=== PATIENT | female | born 1985 | race Caucasian/White ===

== ENCOUNTER → 2019-06-02 | Outpatient (CLI) | payer BC ==
[2019-06-02 08:23] LABS: HEMOGLOBIN 14.5 g/dL (12.0-15.5); MEAN CORPUSCULAR HEMOGLOBIN 30.2 pg (27.0-33.4); MEAN CORPUSCULAR HGB CONC 33.7 g/dL (32.0-36.0); MEAN CORPUSCULAR VOLUME 90 fl (80-97); PLATELET COUNT 317 10^3/uL (150-450); RED CELL DISTRIBUTION WIDTH 12.7 % (11.5-14.0)
[2019-06-02 08:29] LABS: FASTING GAC 104 (<110)
[2019-06-02 08:37] LABS: ALKALINE PHOSPHATASE 61 U/L (38-126); ANION GAP 13 (5-19); ASPARTATE AMINO TRANSFERASE 27 U/L (14-36); BILIRUBIN,DIRECT 0.1 mg/dL (0.0-0.4); BILIRUBIN,TOTAL 0.9 mg/dL (0.2-1.3); BLOOD UREA NITROGEN 12 mg/dL (7-20); CALCIUM 9.8 mg/dL (8.4-10.2); CARBON DIOXIDE 25 mmol/L (22-30); CHLORIDE 101 mmol/L (98-107); CHOLESTEROL 149.61 mg/dL (0-200); GLUCOSE 101 mg/dL (75-110); POTASSIUM 4.4 mmol/L (3.6-5.0); TOTAL PROTEIN 8.2 g/dL (6.3-8.2); TRIGLYCERIDES 123 mg/dL (<150)
[2019-06-02 08:47] LABS: DIRECT LDL 92 mg/dL (<100)
[2019-06-02 08:55] LABS: GLUCOSE,FASTING 101 mg/dL (<110)
[2019-06-02 09:03] LABS: ABSOLUTE LYMPHOCYTES# (MANUAL) 1.5 10^3/uL (0.5-4.7); BASOPHILS % (MANUAL) 0 % (0-2); EOSINOPHILS % (MANUAL) 0 % (0-6); LYMPHOCYTES % (MANUAL) 15 % (13-45); METAMYELOCYTES % (MANUAL) 1 % (0); MONOCYTES % (MANUAL) 10 % (3-13); SEGMENTED NEUTROPHILS % (MAN) 74 % (42-78); TOTAL CELLS COUNTED 100
[2019-06-02 09:05] LABS: OVALOCYTES SLIGHT; PLATELET COMMENT ADEQUATE; POIKILOCYTOSIS SLIGHT
[2019-06-02 09:50] LABS: FREE T3 4.09 pg/mL (2.77-5.27); FREE T4 (FREE THYROXINE) 0.86 ng/dL (0.78-2.19)
[2019-06-02 10:03] LABS: THYROID STIMULATING HORMONE 2.65 uIU/mL (0.47-4.68)
== END ==
LOC: OD 07:20
PROVIDERS: ATTEND Family Medicine
DX: E16.1 Other hypoglycemia (principal); R55 Syncope and collapse; Z82.49 Family history of ischemic heart disease and other diseases of the circulatory system; Z86.32 Personal history of gestational diabetes
CPT/HCPCS: 36415; 80053; 80061; 82947; 82951; 83036; 83525; 83735; 84439; 84443; 84481; 85025

== ENCOUNTER 2020-05-30 18:12 | Emergency (ER) | payer BC ==
[2020-05-30 18:45] VITALS: BP 139/82
== END 2020-05-30 21:10 | disposition left against medical advice (07) ==
LOC: ER 18:12
DX: Z53.21 Procedure and treatment not carried out due to patient leaving prior to being seen by health care provider (principal)
CPT/HCPCS: 82962

== ENCOUNTER 2020-05-31 07:01 | Emergency (ER) | payer BC ==
[2020-05-31] MEDS ORDERED: NORMAL SALINE 1000 ML 1,000 ML IV ONE (08:03)
[2020-05-31] MEDS ORDERED: METOCLOPRAMIDE HCL INJ/PF 10 MG/2 ML SDV IV ONE (08:11)
[2020-05-31] MEDS ORDERED: MECLIZINE HCL 25 MG TABLET PO ONE (08:12)
[2020-05-31 08:25] LABS: ABSOLUTE LYMPHOCYTES (AUTO) 1.2 10^3/uL (0.5-4.7); ABSOLUTE MONOCYTES (AUTO) 0.6 10^3/uL (0.1-1.4); ABSOLUTE NEUT (AUTO) 13.7 10^3/uL (1.7-8.2); BASOPHILS % (AUTO) 0.1 % (0-2); EOSINOPHILS % (AUTO) 0.1 % (0-6); HEMATOCRIT 44.5 % (36.0-47.0); HEMOGLOBIN 15.2 g/dL (12.0-15.5); LYMPHOCYTES % (AUTO) 7.6 % (13-45); MEAN CORPUSCULAR HEMOGLOBIN 30.3 pg (27.0-33.4); MEAN CORPUSCULAR HGB CONC 34.2 g/dL (32.0-36.0); MEAN CORPUSCULAR VOLUME 89 fl (80-97); MONOCYTES % (AUTO) 3.7 % (3-13); PLATELET COUNT 304 10^3/uL (150-450); RED BLOOD COUNT 5.03 10^6/uL (3.72-5.28); RED CELL DISTRIBUTION WIDTH 12.8 % (11.5-14.0); SEGMENTED NEUTROPHILS % (AUTO) 88.5 % (42-78); TOTAL CELLS COUNTED % (AUTO) 100 %; WHITE BLOOD COUNT 15.5 10^3/uL (4.0-10.5)
[2020-05-31 08:43] LABS: ALBUMIN 4.6 g/dL (3.5-5.0); ALKALINE PHOSPHATASE 77 U/L (38-126); ANION GAP 7 (5-19); ASPARTATE AMINO TRANSFERASE 30 U/L (14-36); BILIRUBIN,DIRECT 0.2 mg/dL (0.0-0.4); BILIRUBIN,TOTAL 1.2 mg/dL (0.2-1.3); BLOOD UREA NITROGEN 10 mg/dL (7-20); CALCIUM 9.8 mg/dL (8.4-10.2); CARBON DIOXIDE 24 mmol/L (22-30); CHLORIDE 108 mmol/L (98-107); GLUCOSE 129 mg/dL (75-110); POTASSIUM 4.2 mmol/L (3.6-5.0); TOTAL PROTEIN 7.4 g/dL (6.3-8.2)
--- NOTE | 2020-05-31 09:16 | RADIOLOGY REPORT (SQ) ---
EXAM DESCRIPTION: CT HEAD WITHOUT IMAGES COMPLETED DATE/TIME: 05/31/2020 8:58 am REASON FOR STUDY: dizziness/nausea/motion sickness/frontal SERRANO COMPARISON: None. TECHNIQUE: Axial images acquired through the brain without intravenous contrast. Images reviewed wi th bone, brain and subdural windows. Additional sagittal and coronal reconstructions were generated. Images stored on PACS. All CT scanners at this facility use dose modulation, iterative reconstruction, and/or weight based d osing when appropriate to reduce radiation dose to as low as reasonably achievable (ALARA). [facility]: Dose Right [facility]: CareDose [facility]: Dose Right [facility]: Teradose 4D [facility]: Phloronol RADIATION DOSE: CT Rad equipment meets quality standard of care and radiation dose reduction techniq ues were employed. CTDIvol: 53.2 mGy. DLP: 964 mGy-cm. mGy. LIMITATIONS: None. FINDINGS: VENTRICLES: Normal size and contour. CEREBRUM: No masses. No hemorrhage. No midline shift. No evidence for acute infarction. Normal gra y/white matter differentiation. No areas of low density in the white matter. CEREBELLUM: No masses. No hemorrhage. No alteration of density. No evidence for acute infarction. EXTRAAXIAL SPACES: No fluid collections. No masses. ORBITS AND GLOBE: No intra- or extraconal masses. Normal contour of globe without masses. CALVARIUM: No fracture. PARANASAL SINUSES: No fluid or mucosal thickening. SOFT TISSUES: No mass or hematoma. OTHER: No other significant finding. IMPRESSION: NORMAL BRAIN CT WITHOUT CONTRAST. EVIDENCE OF ACUTE STROKE: NO. COMMENT: Quality ID # [id number]: Final reports with documentation of one or more dose reduction techniques (e.g., Automated exposure control, adjustment of the mA and/or kV according to patient size, use of iterative reconstruction technique) TECHNICAL DOCUMENTATION: JOB ID: [id number] 2010 [employer]- All Rights Reserved Reading location - IP/workstation name: [email or web address]
[2020-05-31 09:45] LABS: APPEARANCE,URINE SLIGHTLY-CLOUDY; BILIRUBIN,URINE NEGATIVE (NEGATIVE); COLOR,URINE YELLOW; GLUCOSE, URINE NEGATIVE (NEGATIVE); KETONES,URINE NEGATIVE (NEGATIVE); LEUKOCYTE ESTERASE,URINE NEGATIVE (NEGATIVE); NITRITE,URINE NEGATIVE (NEGATIVE); PROTEIN,URINE 30 mg/dL (NEGATIVE); URINE SPECIFIC GRAVITY 1.025; UROBILINOGEN,URINE NEGATIVE mg/dL (<2.0)
[2020-05-31 09:55] LABS: ADD MANUAL MICROSCOPIC YES
[2020-05-31 09:57] LABS: BACTERIA,URINE TRACE /HPF; RBC,URINE 0-1 /HPF; WBC,URINE 0-1 /HPF
--- NOTE | 2020-05-31 10:12 | RADIOLOGY REPORT (SQ) ---
EXAM DESCRIPTION: CHEST SINGLE VIEW IMAGES COMPLETED DATE/TIME: 05/31/2020 10:00 am REASON FOR STUDY: leukocytosis COMPARISON: None. EXAM PARAMETERS: NUMBER OF VIEWS: One view. TECHNIQUE: Single frontal radiographic view of the chest acquired. RADIATION DOSE: NA LIMITATIONS: None. FINDINGS: LUNGS AND PLEURA: No opacities, masses or pneumothorax. No pleural effusion. MEDIASTINUM AND HILAR STRUCTURES: No masses. Contour normal. HEART AND VASCULAR STRUCTURES: Heart normal in size. Normal vasculature. BONES: No acute findings. HARDWARE: None in the chest. OTHER: No other significant finding. IMPRESSION: NO ACUTE RADIOGRAPHIC FINDING IN THE CHEST. TECHNICAL DOCUMENTATION: JOB ID: [id number] 2010 [employer]- All Rights Reserved Reading location - IP/workstation name: [email or web address]
--- NOTE | 2020-05-31 10:44 | ER Document Report ---
Entered by SEBASTIAN DARLING SCRIBE 05/31/20 0742 Acting as scribe for:SAGE MIGUEL MD ED General - General Chief Complaint: Nausea/Vomiting/Diarrhea Stated Complaint: DIZZINESS,NAUSEA,VOMITING,DIARRHEA Primary Care Provider: SHAZIA FOX MD [Primary Care Provider] - Follow up as needed Mode of Arrival: Ambulatory Information source: Patient Notes: This 34 year old female patient presents to the ED today with complaints of episodic nausea/vomiting/diarrhea and dizziness that started x6 months ago, worse yesterday morning. Patient states that she came for evaluation yesterday, but left without being seen because she felt better. She reports x4 episodes of emesis and x2 episodes of diarrhea since leaving the ED yesterday, so she decided to come back. She also notes frontal headache, frontal sinus pressure, and nasal drainage. Denies . Patient states that her PCP is working her up for reactive hypoglycemia and that she had some glucose tests that were ambiguous. She further states that her PCP is referring her to a specialist and that she has not seen them yet. TRAVEL OUTSIDE OF THE [place] IN LAST 30 DAYS: No - Related Data Allergies/Adverse Reactions: No Known Allergies Allergy (Verified 05/30/20 19:31) Past Medical History - General Information source: Patient - Social History Smoking Status: Never Smoker Cigarette use (# per day): No Chew tobacco use (# tins/day): No Frequency of alcohol use: None Drug Abuse: None Lives with: Family Family History: Reviewed & Not Pertinent, DM, Hypertension, Malignancy Patient has suicidal ideation: No Patient has homicidal ideation: No Renal/ Medical History: Reports: Hx Ovarian Cysts Psychiatric Medical History: Reports: Hx Anxiety, Hx Depression Past Surgical History: Reports: None Review of Systems - Review of Systems Constitutional: No symptoms reported EENT: See HPI, Nose discharge, Sinus pressure Cardiovascular: See HPI, Dizziness Respiratory: No symptoms reported Gastrointestinal: See HPI, Diarrhea, Nausea, Vomiting Female Genitourinary: See HPI. denies: Musculoskeletal: No symptoms reported Skin: No symptoms reported Hematologic/Lymphatic: No symptoms reported Neurological/Psychological: See HPI, Headaches -: Yes All other systems reviewed and negative Physical Exam - Vital signs Vitals: Pulse Resp BP Pulse Ox 111 H 18 137/79 H 100 05/31/20 07:07 05/31/20 07:07 05/31/20 07:07 05/31/20 07:07 - General General appearance: Alert, Anxious - Shaking - HEENT Head: Normocephalic, Atraumatic Eyes: Normal Extraocular movements intact: No - Patient philipp out with lateral gaze in either direction Tympanic membrane: Bulging - bilaterally, Serous effusion - bilaterally Sinus: Frontal, Tenderness Pharynx: Post nasal drainage - Respiratory Respiratory status: No respiratory distress Chest status: Nontender Breath sounds: Normal Chest palpation: Normal - Cardiovascular Rhythm: Regular Heart sounds: Normal auscultation, S1 appreciated, S2 appreciated Murmur: No Friction rub: No Gallop: None auscultated - Abdominal Inspection: Normal Distension: No distension Bowel sounds: Normal Tenderness: Nontender - Abdomen soft Organomegaly: No organomegaly - Back Back: Normal, Nontender - Extremities General upper extremity: Normal inspection General lower extremity: Normal inspection. No: Edema - Neurological Neuro grossly intact: Yes - No focal neurological deficits Orientation: AAOx4 Kirill Coma Scale Eye Opening: Spontaneous Kirill Coma Scale Verbal: Oriented [place] Coma Scale Motor: Obeys Commands Kirill Coma Scale Total: 15 - Psychological Associated symptoms: Anxious - Skin Skin Temperature: Warm Skin Moisture: Dry Skin Color: Normal Course - Re-evaluation Re-evalutation: 05/31/20 10:36 Patient states she is feeling better after receiving medications for labyrinthitis. - Vital Signs Vital signs: Temp Pulse Resp BP Pulse Ox 111 H 18 137/79 H 100 05/31/20 07:07 05/31/20 07:07 05/31/20 07:07 05/31/20 07:07 05/31/20 10:36 Vital signs show sinus tachycardia 111. - Laboratory Result Diagrams: 05/31/20 07:59 05/31/20 07:59 Laboratory results interpreted by me: 05/31/20 05/31/20 05/31/20 07:59 07:59 08:38 WBC 15.5 H Lymph % (Auto) 7.6 L Absolute Neuts (auto) 13.7 H Seg Neutrophils % 88.5 H Chloride 108 H Creatinine 0.45 L Glucose 129 H ALT 43 H Urine Protein 30 H Labs report of 15.5 white blood cell count and a glucose of 129. Discussed with patient regarding her elevated white blood cell count she has no fever chills has not been vomiting. Reports that she usually does not have an elevated white blood cell count and is not on any steroids at this time. 05/31/20 10:37 05/31/20 07:59 05/31/20 07:59 MCV 89 fl (80-97) 05/31/20 07:59 MCH 30.3 pg (27.0-33.4) 05/31/20 07:59 MCHC 34.2 g/dL (32.0-36.0) 05/31/20 07:59 RDW 12.8 % (11.5-14.0) 05/31/20 07:59 Seg Neutrophils % 88.5 % (42-78) H 05/31/20 07:59 Chloride 108 mmol/L (98-107) H 05/31/20 07:59 Carbon Dioxide 24 mmol/L (22-30) 05/31/20 07:59 Anion Gap 7 (5-19) 05/31/20 07:59 Est GFR ( Amer) > 60 (>60) 05/31/20 07:59 Glucose 129 mg/dL (75-110) H 05/31/20 07:59 Calcium 9.8 mg/dL (8.4-10.2) 05/31/20 07:59 Total Bilirubin 1.2 mg/dL (0.2-1.3) 05/31/20 07:59 AST 30 U/L (14-36) 05/31/20 07:59 Alkaline Phosphatase 77 U/L (38-126) 05/31/20 07:59 Total Protein 7.4 g/dL (6.3-8.2) 05/31/20 07:59 Albumin 4.6 g/dL (3.5-5.0) 05/31/20 07:59 Urine Color YELLOW 05/31/20 08:38 Urine Appearance SLIGHTLY-CLOUDY 05/31/20 08:38 Urine pH 9.0 (5.0-9.0) 05/31/20 08:38 Ur Specific Ray 1.025 05/31/20 08:38 Urine Protein 30 mg/dL (NEGATIVE) H 05/31/20 08:38 Urine Glucose (UA) NEGATIVE mg/dL (NEGATIVE) 05/31/20 08:38 Urine Ketones NEGATIVE mg/dL (NEGATIVE) 05/31/20 08:38 Urine Blood NEGATIVE (NEGATIVE) 05/31/20 08:38 Urine Nitrite NEGATIVE (NEGATIVE) 05/31/20 08:38 Ur Leukocyte Esterase NEGATIVE (NEGATIVE) 05/31/20 08:38 Ur Squamous Epith Cells FEW /HPF 05/31/20 08:38 - Diagnostic Test Radiology reviewed: Image reviewed, Reports reviewed Radiology results interpreted by me: 05/31/20 10:[address] 05/31/20 08:09 IMPRESSION: NORMAL BRAIN CT WITHOUT CONTRAST. EVIDENCE OF ACUTE STROKE: NO. Chest X-Ray 05/31/20 09:13 IMPRESSION: NO ACUTE RADIOGRAPHIC FINDING IN THE CHEST. CT scan of patient's head shows no acute process no evidence for stroke. Chest x-ray shows no acute infiltrate or any acute radiographic finding on chest x-ray today. Discharge - Discharge Clinical Impression: Acute labyrinthitis, Dizziness, Sinus headache Condition: Stable Disposition: HOME, SELF-CARE Instructions: Labyrinthitis ([facility]), Meclizine ([facility]), Antinausea Medication ([facility]) Prescriptions: Amoxicillin 1 tab PO TID #30 tab Meclizine HCl [Antivert 25 mg Tablet] 25 mg PO TID PRN #21 tablet PRN Reason: Ondansetron [Zofran Odt 4 mg Tablet] 1 - 2 tab PO Q4H PRN #15 tab.rapdis PRN Reason: For Nausea/Vomiting Referrals: SHAZIA FOX MD [Primary Care Provider] - Follow up as needed I personally performed the services described in the documentation, reviewed and edited the documentation which was dictated to the scribe in my presence, and it accurately records my words and actions.
[2020-05-31 11:04] VITALS: BP 124/70
== END 2020-05-31 11:02 | disposition home or self-care (01) ==
LOC: ER 07:01
DX: H83.03 Labyrinthitis, bilateral (principal); R42 Dizziness and giddiness; R51 Headache; R11.2 Nausea with vomiting, unspecified; R19.7 Diarrhea, unspecified
CPT/HCPCS: 99285; 96361; 96374; 36415; 85025; 80053; 81001; 71045; 70450; J2765; J7030

== ENCOUNTER → 2020-06-15 | Outpatient (CLI) | payer BC ==
--- NOTE | 2020-06-15 13:11 | RADIOLOGY REPORT (SQ) ---
EXAM DESCRIPTION: MRI HEAD WITHOUT IMAGES COMPLETED DATE/TIME: 06/15/2020 12:32 pm REASON FOR STUDY: H81.399 OTHER PERIPHERAL VERTIGO, UNSPECIFIED EAR H81.399 OTHER PERIPHERAL VERTIG O, UNSPECIFIED EAR COMPARISON: None. TECHNIQUE: Multiplanar imaging includes non-contrasted T1, T2, FLAIR, and diffusion with ADC map seq uences. Additional thin slice images without gadolinium contrast acquired in the posterior fossa. Thao ges stored on PACS. LIMITATIONS: None. FINDINGS: ANATOMY: No anomalies. Normal vascular flow voids. Pituitary fossa normal. CSF SPACES: Normal in size and contour. No hemorrhage. CEREBRUM: Sulci and gyri normal in size and contour. Normal white matter signal on FLAIR imaging. No evidence of hemorrhage, mass, or extraaxial fluid collection. POSTERIOR FOSSA: No signal alteration. No hemorrhage. No edema, masses or mass effect. Internal kia tory canals, cerebello-pontine angles, mastoids normal. DIFFUSION IMAGING: Negative for acute or sub-acute infarction. ORBITS: No masses. Globes normal. PARANASAL SINUSES: No fluid levels. Mucosa normal. OTHER: No other significant finding. IMPRESSION: NORMAL MRI OF THE BRAIN WITHOUT INTRAVENOUS GADOLINIUM CONTRAST. IF THERE IS SUSPICION OF AN ACOUSTIC NEUROMA, THEN MR IMAGING WITH INTRAVENOUS CONTRAST WILL BE NECESSARY. EVIDENCE OF ACUTE STROKE: NO. TECHNICAL DOCUMENTATION: JOB ID: [id number] 2010 [employer]- All Rights Reserved Reading location - IP/workstation name: [email or web address]
== END ==
LOC: RAD 10:45
PROVIDERS: ATTEND Family Medicine
DX: H81.399 Other peripheral vertigo, unspecified ear (principal)
CPT/HCPCS: 70551

== ENCOUNTER → 2020-06-26 | Outpatient (CLI) | payer BC ==
[2020-06-26 09:17] LABS: ABSOLUTE EOSINOPHILS # (AUTO) 0.1 10^3/uL (0.0-0.6); ABSOLUTE LYMPHOCYTES (AUTO) 1.7 10^3/uL (0.5-4.7); ABSOLUTE MONOCYTES (AUTO) 0.6 10^3/uL (0.1-1.4); ABSOLUTE NEUT (AUTO) 5.5 10^3/uL (1.7-8.2); BASOPHILS % (AUTO) 0.5 % (0-2); EOSINOPHILS % (AUTO) 1.6 % (0-6); HEMATOCRIT 42.2 % (36.0-47.0); HEMOGLOBIN 14.8 g/dL (12.0-15.5); MEAN CORPUSCULAR HEMOGLOBIN 30.8 pg (27.0-33.4); MEAN CORPUSCULAR VOLUME 88 fl (80-97); MONOCYTES % (AUTO) 7.9 % (3-13); PLATELET COUNT 291 10^3/uL (150-450); RED BLOOD COUNT 4.79 10^6/uL (3.72-5.28); RED CELL DISTRIBUTION WIDTH 12.8 % (11.5-14.0); TOTAL CELLS COUNTED % (AUTO) 100 %
[2020-06-26 09:38] LABS: ANION GAP 10 (5-19); BLOOD UREA NITROGEN 11 mg/dL (7-20); CALCIUM 9.7 mg/dL (8.4-10.2); CARBON DIOXIDE 26 mmol/L (22-30); CHLORIDE 103 mmol/L (98-107); GLUCOSE 98 mg/dL (75-110); POTASSIUM 4.7 mmol/L (3.6-5.0)
== END ==
LOC: OD 08:42
PROVIDERS: ATTEND Family Medicine
DX: D72.829 Elevated white blood cell count, unspecified (principal); R73.01 Impaired fasting glucose
CPT/HCPCS: 36415; 80048; 83036; 85025

== ENCOUNTER → 2020-07-02 | Outpatient (CLI) | payer BC ==
--- NOTE | 2020-07-02 19:08 | RADIOLOGY REPORT (SQ) ---
EXAM DESCRIPTION: MRI HEAD COMBO IMAGES COMPLETED DATE/TIME: 07/02/2020 3:50 pm REASON FOR STUDY: H81.399 OTHER PERIPHERAL VERTIGO, UNSPECIFIED EAR H81.399 OTHER PERIPHERAL VERTIG O, UNSPECIFIED EAR COMPARISON: 06/15/2020 TECHNIQUE: Postcontrast enhanced image performed to evaluate the IAC's. Stored on PACS. CONTRAST TYPE AND DOSE: 10 mL Prohance. RENAL FUNCTION: Not indicated. ACR Type II contrast agent associated with few, if any, unconfounded cases of NSF LIMITATIONS: None. FINDINGS: CEREBRUM: Sulci and gyri normal in size and contour. Normal white matter signal on FLAIR imaging. No hemorrhage. No edema, masses or mass effect. No enhancing lesions. POSTERIOR FOSSA: No signal alteration. No hemorrhage. No edema, masses or mass effect. Internal kia tory canals, cerebello-pontine angles, mastoids normal. No enhancing lesions. Detailed imaging of the 5th, 7th, and 8th nerves and [place] within normal limits. . IMPRESSION: Normal postcontrast enhanced imaging of the IAC's and brain. TECHNICAL DOCUMENTATION: JOB ID: [id number] [employer]- All Rights Reserved Reading location - IP/workstation name: [email or web address]
== END ==
LOC: RAD 15:05
PROVIDERS: ATTEND Family Medicine
DX: H81.399 Other peripheral vertigo, unspecified ear (principal)
CPT/HCPCS: 70553; A9576

== ENCOUNTER → 2020-09-24 | Outpatient (CLI) | payer BC ==
[~2020-09-24] MED LIST: COVID-19 VACCINE (PFIZER)/PF 30 MCG/0.3 ML VIAL IM ONE; EPINEPHRINE INJ/PF 1 MG/1 ML AMPULE IM PRN
== END ==
LOC: EMPHEALTH 12:51
PROVIDERS: ATTEND Internal Medicine
DX: Z23 Encounter for immunization (principal)
CPT/HCPCS: 91300